=== PATIENT | female | born 1985 | race African-American/Black ===

== ENCOUNTER 2018-02-06 13:24 | Emergency (ER) | payer MEDICAID, SELFPAY ==
[2018-02-06] MEDS ORDERED: Ketorolac Tromethamine 60 MG/2 ML VIAL ONE (14:15)
== END 2018-02-06 14:40 | disposition home or self-care (01) ==
LOC: ERS 13:24
DX: K03.81 Cracked tooth (principal); K02.9 Dental caries, unspecified
CPT/HCPCS: 96372; J1885

== ENCOUNTER 2024-05-29 12:35 | Emergency (ER) | payer MEDICAID, OTHER, SELFPAY ==
[2024-05-29] MEDS ORDERED: Ketorolac Tromethamine 30 MG (1 mL) VIAL ONE (13:14)
== END 2024-05-29 15:07 | disposition home or self-care (01) ==
LOC: ERS 12:35
DX: K08.89 Other specified disorders of teeth and supporting structures (principal)
CPT/HCPCS: 96372; 99282; J1885